=== PATIENT | female | born 1945 | race Caucasian/White ===

== ENCOUNTER 2016-11-06 13:02 | Outpatient (CLI) | payer MEDICARE, OTHER | END 2016-11-06 13:03 | disposition home or self-care (01) | DX: G47.30 Sleep apnea, unspecified (principal); R06.83 Snoring; G47.8 Other sleep disorders | CPT/HCPCS: 99203; G0463 ==

== ENCOUNTER 2016-11-29 22:15 | Outpatient (CLI) | payer MEDICARE, OTHER | END 2016-11-29 22:16 | disposition home or self-care (01) | LOC: SC 22:15 | PROVIDERS: ATTEND Internal Medicine Pulmonary Disease | DX: G47.33 Obstructive sleep apnea (adult) (pediatric) (principal); G47.61 Periodic limb movement disorder; Z68.1 Body mass index [BMI] 19.9 or less, adult | CPT/HCPCS: 95810 ==

== ENCOUNTER 2016-12-28 09:19 | Outpatient (CLI) | payer MEDICARE, OTHER | END 2016-12-28 09:20 | disposition home or self-care (01) | LOC: SC 09:19 | PROVIDERS: ATTEND Nurse Practitioner Family | DX: G47.33 Obstructive sleep apnea (adult) (pediatric) (principal); I49.9 Cardiac arrhythmia, unspecified | CPT/HCPCS: 99214; G0463; 99212 ==